=== PATIENT | male | born 1950 | race Caucasian/White ===

== ENCOUNTER 2018-07-14 19:45 | Inpatient (IN) | payer MEDICARE ==
[2018-07-14] MEDS ORDERED: CA CHLORIDE 10% 10 ML SYRINGE (19:56)
[2018-07-14] MEDS: SODIUM CHLORIDE 0.9% 1L BAG IV* (20:04)
[2018-07-14] MEDS: SODIUM CHLORIDE 0.9% 500 ML BAG IV* (20:04)
[2018-07-14] MEDS ORDERED: EPINEPHrine 0.1 MG/ML SYG ×2 (20:08→20:09)
[2018-07-14] MEDS: DOPamine-D5W 1.6 MG/ML 250 ML IV (20:12)
[2018-07-14] MEDS: NORepinephrine 8MG/250 ML (PMX 250 ML IV (20:16)
[2018-07-14] MEDS: VECURONIUM 100 MG in DEXTROSE 5% 100 ML IV (20:18)
[2018-07-14 20:34] LABS: WHITE BLOOD COUNT 6.9 10^3/ul (4.8-10.8)
[2018-07-14 20:34] LABS: ABNORMAL IP MESSAGE 1; HEMOGLOBIN 13.6 g/dl (14.0-18.0); MEAN CORPUSCULAR HGB CONC 31.6 g/dl (32.0-37.0); MEAN CORPUSCULAR VOLUME 94.9 fl (82.0-101.0); PLATELET COUNT 195 10^3/UL (140-415); POSITIVE DIFF @See below; RED BLOOD COUNT 4.53 10^6/ul (4.70-6.10); RED CELL DISTRIBUTION WIDTH 12.8 % (11.5-14.5)
[2018-07-14 20:37] LABS: ADD MAN DIFF? YES
[2018-07-14 20:39] LABS: INR 1.29; PARTIAL THROMBOPLASTIN TIME 35.9 Sec (23.0-35.0); PROTIME 16.2 Sec (11.9-14.9); PT RATIO 1.3
[2018-07-14 20:42] LABS: ADD UMIC NO; ALANINE AMINOTRANSFERASE 239 IU/L (13-69); ALBUMIN 3.6 g/dl (3.3-4.9); ALBUMIN/GLOBULIN RATIO 1.38; ALKALINE PHOSPHATASE 87 IU/L (42-121); ANION GAP 23 (5-13); ASPARTATE AMINO TRANSFERASE 193 IU/L (15-46); BILIRUBIN,INDIRECT 0.3 mg/dl (0-1.1); BILIRUBIN,TOTAL 0.3 mg/dl (0.2-1.3); BLOOD UREA NITROGEN 24 mg/dl (7-20); CALCIUM 10.4 mg/dl (8.4-10.2); CARBON DIOXIDE 18 mmol/L (21-31); CHLORIDE 98 mmol/L (97-110); CREATININE 1.22 mg/dl (0.61-1.24); Estimated GFR 59 mL/min (>60); LIPASE 70 U/L (23-300); MAGNESIUM 3.4 mg/dl (1.7-2.5); PHOSPHORUS 10.5 mg/dl (2.5-4.9); POTASSIUM 3.1 mmol/L (3.5-5.1); SODIUM 139 mmol/L (135-144); TOTAL PROTEIN 6.2 g/dl (6.1-8.1); UR ASCORBIC ACID 40 mg/dL (NEGATIVE); UR BILIRUBIN (Dip) NEGATIVE (NEGATIVE); UR BLOOD (Dip) NEGATIVE (NEGATIVE); UR CLARITY CLEAR (CLEAR); UR COLOR YELLOW (YELLOW); UR GLUCOSE (Dip) NEGATIVE (NEGATIVE); UR KETONES (Dip) NEGATIVE (NEGATIVE); UR LEUKOCYTE ESTERASE (Dip) NEGATIVE Leu/ul (NEGATIVE); UR NITRITE (Dip) NEGATIVE (NEGATIVE); UR SPECIFIC GRAVITY (Dip) 1.018 (1.003-1.030); UR TOTAL PROTEIN (Dip) NEGATIVE (NEGATIVE); UR UROBILINOGEN (Dip) NEGATIVE (NEGATIVE)
[2018-07-14] MEDS: HYDROCORTISONE 100 MG INJ IV (20:43)
[2018-07-14] MEDS: CEFEPIME 2GM/50 ML (PMX) 50 ML IVPB (20:44)
[2018-07-14 20:45] LABS: ETHANOL < 10.0 mg/dl (0-0)
[2018-07-14 20:47] LABS: GLUCOSE 468 mg/dl (70-220)
[2018-07-14 20:49] LABS: LACTIC ACID 17.4 mmol/L (0.5-2.0)
[2018-07-14 20:52] LABS: TROPONIN-I 0.061 ng/ml (0.000-0.120)
[2018-07-14] MEDS: VANCOMYCIN 1 GM (PMX) 250 ML IVPB (21:00)
[2018-07-14 21:02] LABS: AMPHETAMINE/METHAMPHETAMINE Negative (NEGATIVE); BARBITURATES Negative (NEGATIVE); BENZODIAZEPINES Negative (NEGATIVE); CANNABINOIDS Negative (NEGATIVE); COCAINE Negative (NEGATIVE); OPIATES Negative (NEGATIVE)
[2018-07-14 21:11] LABS: AADO2 Arterial 565.3 mmHg (7.0-24.0); Allen Test ACCEPTAB; Arterial Base Excess -12.7 mmol/L (-3.0-3); Arterial Blood Gas Oxygen Sat 89.6 mmHG (95.0-98.0); Arterial COHb 0.3 % (0.0-3.0); Arterial HCO3 18.6 mmol/L (22.0-26.0); Arterial MetHb 0.4 % (0.0-1.5); Arterial pCO2 66.6 mmhg (35-45); MODE VENT - AC; Site Right Radial
[2018-07-14] MEDS: VASOPRESSIN 100 UNIT in SOD CHLORIDE 0.9% 95 ML IV (21:13)
[2018-07-14] MEDS ORDERED: IOHEXOL 350MG/ML 50 ML BTL (21:17)
[2018-07-14] MEDS ORDERED: FENTAnyl 50 MCG/ML VIAL (21:17)
[2018-07-14] MEDS ORDERED: VERAPAMIL 5 MG INJ (21:17)
[2018-07-14] MEDS ORDERED: NITROGLYCERIN (IC) 100 MCG/ML INJ (21:17)
[2018-07-14] MEDS ORDERED: MIDAZOLAM 1 MG/ML 2 ML INJ (21:17)
[2018-07-14] MEDS ORDERED: IODIXANOL LOCM 100 ML BTL (21:17)
[2018-07-14] MEDS ORDERED: LIDOCAINE 1% (MDV) 20 ML INJ (21:17)
[2018-07-14] MEDS ORDERED: ASPIRIN 325 MG TAB ×2 (21:25→22:43)
[2018-07-14] MEDS ORDERED: NA BICARBONATE 8.4% 50 ML SYG (21:45)
[2018-07-14] MEDS ORDERED: TICAGRELOR 90 MG TABLET (22:19)
[2018-07-14 22:38] LABS: BAND NEUTROPHILS #M 0.3 10^3/ul (0.0-0.6); BAND NEUTROPHILS % (M) 5 % (0-4); BASOPHILS % (M) 1 % (0-2); EOSINOPHILS % (M) 3 % (0-7); LYMPHOCYTES #M 5.3 10^3/ul (0.8-2.9); LYMPHOCYTES % (M) 77 % (15-51); METAMYELOCYTES %M 1 % (0-0); MONOCYTE #M 0.4 10^3/ul (0.3-0.9); MONOCYTES % (M) 7 % (0-11); MYELOCYTES % (M) 1 % (0-0); PLASMA CELLS #M 0.1 10^3/ul (0.0-0.0); PLASMAC%(M) 2 % (0); PLATELET ESTIMATE NORMAL; POIKILOCYTOSIS 1+ (0-0); SEG NEUT #M 0.2 10^3/ul (1.6-7.5); SEGMENTED NEUTROPHILS (M) % 3 % (39-77); SMUDGE%M 64 % (0-0)
[2018-07-14 22:40] LABS: AADO2 Arterial 568.4 mmHg (7.0-24.0); Arterial Base Excess -6.1 mmol/L (-3.0-3); Arterial Blood Gas Oxygen Sat 93.5 mmHG (95.0-98.0); Arterial COHb 0.3 % (0.0-3.0); Arterial Fraction of Oxyhgb 92.8 % (93.0-99.0); Arterial HCO3 23.2 mmol/L (22.0-26.0); Arterial MetHb 0.4 % (0.0-1.5); Arterial pCO2 60.9 mmhg (35-45); MODE VENT - AC; Site A-Line
[2018-07-14] MEDS ORDERED: EPTIFIBATIDE 100 ML IV (22:44)
[2018-07-14] MEDS ORDERED: EPTIFIBATIDE 10 ML (22:44)
[2018-07-14] MEDS: SOD CHLORIDE 0.9% 1,000 ML IV (22:51)
[2018-07-14] MEDS: EPTIFIBATIDE 100 ML IV (22:51)
[2018-07-14 23:22] LABS: ADD MAN DIFF? NO
[2018-07-14 23:44] LABS: WHITE BLOOD COUNT 20.9 10^3/ul (4.8-10.8)
[2018-07-14 23:44] LABS: BASOPHIL # 0.1 10^3/ul (0.0-0.1); BASOPHILS % 0.3 % (0.0-2.0); EOSINOPHILS # 0.1 10^3/ul (0.0-0.5); EOSINOPHILS % 0.4 % (0.0-7.0); HEMATOCRIT 45.7 % (42.0-52.0); HEMOGLOBIN 15.6 g/dl (14.0-18.0); LYMPHOCYTES # 2.4 10^3/ul (0.8-2.9); LYMPHOCYTES % 11.3 % (15.0-51.0); MEAN CORPUSCULAR HEMOGLOBIN 29.8 pg (29.0-33.0); MEAN CORPUSCULAR HGB CONC 34.1 g/dl (32.0-37.0); MEAN CORPUSCULAR VOLUME 87.4 fl (82.0-101.0); MEAN PLATELET VOLUME 9.5 fl (7.4-10.4); MONOCYTE # 1.1 10^3/ul (0.3-0.9); MONOCYTES % 5.4 % (0.0-11.0); PLATELET COUNT 319 10^3/UL (140-415); RED BLOOD COUNT 5.23 10^6/ul (4.70-6.10); RED CELL DISTRIBUTION WIDTH 12.7 % (11.5-14.5)
[2018-07-14 23:52] LABS: ANION GAP 20 (5-13); BLOOD UREA NITROGEN 30 mg/dl (7-20); CALCIUM 8.9 mg/dl (8.4-10.2); CARBON DIOXIDE 23 mmol/L (21-31); CHLORIDE 99 mmol/L (97-110); CREATININE 1.36 mg/dl (0.61-1.24); Estimated GFR 52 mL/min (>60); GLUCOSE 380 mg/dl (70-220); MAGNESIUM 2.5 mg/dl (1.7-2.5); POTASSIUM 3.2 mmol/L (3.5-5.1); SODIUM 142 mmol/L (135-144)
[2018-07-15] LABS: LACTIC ACID 7.8 mmol/L (0.5-2.0)
[2018-07-15] MEDS ORDERED: AMIODARONE 900 MG in DEXTROSE 5% 482 ML IV (00:08)
[2018-07-15] MEDS ORDERED: IODIXANOL LOCM 100 ML BTL ×2 (00:13)
[2018-07-15] MEDS ORDERED: ONDANSETRON 4 MG INJ IV (00:30)
[2018-07-15] MEDS ORDERED: ALBUTEROL HFA 8 GM INHALER INH (00:30)
[2018-07-15] MEDS ORDERED: ACETAMINOPHEN 650MG/20.3ML CUP PO (00:30)
[2018-07-15] MEDS ORDERED: IPRATROPIUM (HFA) 12.9 GM INHALER INH (00:30)
[2018-07-15] MEDS ORDERED: ACCU-CHEK XX ×2 (00:30→02:30)
[2018-07-15] MEDS ORDERED: INSULIN HUMAN REGULAR 100 UNIT in SOD CHLORIDE 0.9% 99 ML IV ×2 (00:30→02:30)
[2018-07-15] MEDS ORDERED: DEXTROSE 50% 50 ML SYRINGE IV ×6 (00:30→02:30)
[2018-07-15] MEDS: MIDAZOLAM (DRIP) 50 mg/50 mL 50 ML IV ×4 (00:45→21:59)
[2018-07-15] MEDS: AMIODARONE 900 MG in DEXTROSE 5% 482 ML IV (00:46)
[2018-07-15] MEDS: FENTAnyl (DRIP) 1000 mcg/100mL 100 ML IV ×3 (00:46→21:44)
[2018-07-15] MEDS: POTASSIUM CHLORIDE 50 ML IVPB ×9 (01:03→20:36)
[2018-07-15] MEDS: LORAZEPAM 2 MG INJ IV (01:16)
[2018-07-15] MEDS: ACCU-CHEK XX ×24 (01:16→23:06)
[2018-07-15 01:47] LABS: LACTIC ACID 11.4 mmol/L (0.5-2.0)
[2018-07-15 01:51] LABS: HEMOGLOBIN A1C 5.3 % (0-5.9)
[2018-07-15] MEDS: PROPOFOL 100 ML IV ×6 (02:00→20:56)
[2018-07-15] MEDS: DIAZEPAM 5 MG/ML SYG IV (02:00)
[2018-07-15] MEDS: OCULAR LUBRICANT 3.5 GM OPH OINT BOTH EYES ×4 (02:00→18:07)
[2018-07-15] MEDS ORDERED: MEPERIDINE 25 MG INJ IM (02:00)
[2018-07-15] MEDS: ACETAMINOPHEN 650MG/20.3ML CUP NGT ×4 (02:00→21:52)
[2018-07-15] MEDS: ASPIRIN 300 MG SUPP PR (02:53)
[2018-07-15] MEDS ORDERED: MAGNESIUM SULFATE (02:54)
[2018-07-15] MEDS ORDERED: D5W (02:54)
[2018-07-15] MEDS: TICAGRELOR 90 MG TABLET PO ×3 (02:55→21:19)
[2018-07-15] MEDS: LEVETIRACETAM 1000 MG (PMX) 100 ML IVPB (03:08)
[2018-07-15] MEDS: MAGNESIUM SULFATE 3 GM in DEXTROSE 5% 100 ML IV (03:28)
[2018-07-15] MEDS ORDERED: MEPERIDINE 25 MG INJ IV (03:30)
[2018-07-15] MEDS: VASOPRESSIN 60 UNIT in DEXTROSE 5% 57 ML IV ×3 (04:00→16:06)
[2018-07-15] MEDS: INSULIN HUMAN REGULAR 100 UNIT in SOD CHLORIDE 0.9% 99 ML IV ×3 (04:13→20:14)
[2018-07-15] MEDS: NORepinephrine 32 MG in DEXTROSE 5% 218 ML IV (04:46)
[2018-07-15 05:17] LABS: AADO2 Arterial 278.9 mmHg (7.0-24.0); Arterial Base Excess -11.4 mmol/L (-3.0-3); Arterial Blood Gas Oxygen Sat 99.4 mmHG (95.0-98.0); Arterial COHb 0.3 % (0.0-3.0); Arterial Fraction of Oxyhgb 98.7 % (93.0-99.0); Arterial HCO3 13.6 mmol/L (22.0-26.0); Arterial MetHb 0.4 % (0.0-1.5); Arterial pCO2 24.3 mmhg (35-45); MODE VENT - AC; Site A-Line
[2018-07-15 05:48] LABS: WHITE BLOOD COUNT 28.9 10^3/ul (4.8-10.8)
[2018-07-15 05:48] LABS: ABNORMAL IP MESSAGE 1; HEMATOCRIT 42.8 % (42.0-52.0); MEAN CORPUSCULAR HEMOGLOBIN 30.4 pg (29.0-33.0); MEAN CORPUSCULAR VOLUME 86.8 fl (82.0-101.0); MEAN PLATELET VOLUME 9.6 fl (7.4-10.4); PLATELET COUNT 330 10^3/UL (140-415); POSITIVE DIFF @See below; RED BLOOD COUNT 4.93 10^6/ul (4.70-6.10); RED CELL DISTRIBUTION WIDTH 12.9 % (11.5-14.5)
[2018-07-15] MEDS: SOD CHLORIDE 0.9% 1,000 ML IV (05:50)
[2018-07-15 06:07] LABS: INR 1.17; PARTIAL THROMBOPLASTIN TIME 29.8 Sec (23.0-35.0); PT RATIO 1.2
[2018-07-15 06:12] LABS: ADD MAN DIFF? YES
[2018-07-15] MEDS: ARTIFICIAL TEARS 15 ML OPH BOTH EYES (06:19)
[2018-07-15] MEDS: PANTOPRAZOLE 40 MG INJ IV (06:20)
[2018-07-15 06:27] LABS: B-TYPE NATRIURETIC PEPTIDE 199 PG/ML (0-125)
[2018-07-15 06:38] LABS: ALANINE AMINOTRANSFERASE 353 IU/L (13-69); ALBUMIN 3.8 g/dl (3.3-4.9); ALBUMIN/GLOBULIN RATIO 1.35; ALKALINE PHOSPHATASE 92 IU/L (42-121); ANION GAP 23 (5-13); ASPARTATE AMINO TRANSFERASE 552 IU/L (15-46); BILIRUBIN,INDIRECT 0.6 mg/dl (0-1.1); BILIRUBIN,TOTAL 0.6 mg/dl (0.2-1.3); BLOOD UREA NITROGEN 31 mg/dl (7-20); CALCIUM 8.8 mg/dl (8.4-10.2); CARBON DIOXIDE 14 mmol/L (21-31); CHLORIDE 106 mmol/L (97-110); CREATININE 1.87 mg/dl (0.61-1.24); Estimated GFR 36 mL/min (>60); GLUCOSE 321 mg/dl (70-220); PHOSPHORUS 1.3 mg/dl (2.5-4.9); SODIUM 143 mmol/L (135-144); TOTAL PROTEIN 6.6 g/dl (6.1-8.1)
[2018-07-15 06:41] LABS: LACTIC ACID 13.4 mmol/L (0.5-2.0)
[2018-07-15 06:41] LABS: POTASSIUM 2.4 mmol/L (3.5-5.1)
[2018-07-15] MEDS ORDERED: POTASSIUM CHLORIDE 150 ML (06:44)
[2018-07-15 07:16] LABS: CHOL/HDL RATIO 4.4 RATIO; HDL CHOLESTEROL 39 mg/dl (30-78); LDL CHOLESTEROL,CALCULATED 76 mg/dl; TRIGLYCERIDES 291 mg/dl (0-149)
[2018-07-15 07:16] LABS: CHOLESTEROL 173 mg/dl (100-200)
[2018-07-15 07:19] LABS: MAGNESIUM 2.4 mg/dl (1.7-2.5)
[2018-07-15] MEDS ORDERED: NA BICARBONATE 8.4% 50 ML SYG (07:26)
[2018-07-15 07:35] LABS: ANISOCYTOSIS 2+ (0-0); BAND NEUTROPHILS % (M) 14 % (0-4); BURR CELLS 2+ (0-0); EOSINOPHILS % (M) 1 % (0-7); LYMPHOCYTES #M 2.3 10^3/ul (0.8-2.9); LYMPHOCYTES % (M) 8 % (15-51); MICROCYTOSIS 1+ (0-0); MONOCYTE #M 1.7 10^3/ul (0.3-0.9); MONOCYTES % (M) 6 % (0-11); MYELOCYTES #M 0.2 10^3/ul (0.0-0.0); MYELOCYTES % (M) 1 % (0-0); PLATELET ESTIMATE NORMAL; POIKILOCYTOSIS 3+ (0-0); REACTIVE LYMPHOCYTES #M 0.8 10^3/ul (0.0-0.0); REACTIVE LYMPHOCYTES% (M) 3 % (0-0); SEG NEUT #M 20.5 10^3/ul (1.6-7.5); SEGMENTED NEUTROPHILS (M) % 67 % (39-77); SMUDGE%M 2 % (0-0)
[2018-07-15] MEDS: NA BICARBONATE 8.4% 50 ML SYG IV (07:40)
[2018-07-15 08:19] LABS: CK INDEX 9.5
[2018-07-15] MEDS: ASPIRIN 81 MG TAB PO (10:15)
[2018-07-15] MEDS: DOPamine-D5W 1.6 MG/ML 250 ML IV ×2 (10:16→21:01)
[2018-07-15 10:37] LABS: AMYLASE 1036 U/L (11-123)
[2018-07-15 10:37] LABS: LIPASE 112 U/L (23-300)
[2018-07-15 11:47] LABS: AADO2 Arterial 237.7 mmHg (7.0-24.0); Arterial Blood Gas Oxygen Sat 97.7 mmHG (95.0-98.0); Arterial COHb 0.3 % (0.0-3.0); Arterial HCO3 17.3 mmol/L (22.0-26.0); Arterial MetHb 0.4 % (0.0-1.5); Arterial pCO2 29.7 mmhg (35-45); MODE VENT - AC; Site A-Line
[2018-07-15 12:04] LABS: ADD MAN DIFF? NO
[2018-07-15 12:16] LABS: MAGNESIUM 2.6 mg/dl (1.7-2.5)
[2018-07-15] MEDS: SODIUM BICARBONATE (IV ADD) 100 MEQ in DEXTROSE 5%-0.45% NACL 1,000 ML IV (12:16)
[2018-07-15 12:18] LABS: ALANINE AMINOTRANSFERASE 330 IU/L (13-69); ALBUMIN 3.8 g/dl (3.3-4.9); ALBUMIN/GLOBULIN RATIO 1.26; ALKALINE PHOSPHATASE 76 IU/L (42-121); ANION GAP 20 (5-13); ASPARTATE AMINO TRANSFERASE 510 IU/L (15-46); BILIRUBIN,INDIRECT 0.6 mg/dl (0-1.1); BILIRUBIN,TOTAL 0.6 mg/dl (0.2-1.3); BLOOD UREA NITROGEN 34 mg/dl (7-20); CALCIUM 9.1 mg/dl (8.4-10.2); CARBON DIOXIDE 19 mmol/L (21-31); CHLORIDE 103 mmol/L (97-110); CREATININE 2.21 mg/dl (0.61-1.24); Estimated GFR 30 mL/min (>60); GLUCOSE 245 mg/dl (70-220); PHOSPHORUS 0.6 mg/dl (2.5-4.9); SODIUM 142 mmol/L (135-144); TOTAL PROTEIN 6.8 g/dl (6.1-8.1)
[2018-07-15 12:21] LABS: INR 1.14; PROTIME 14.7 Sec (11.9-14.9); PT RATIO 1.1
[2018-07-15 12:22] LABS: PARTIAL THROMBOPLASTIN TIME 28.6 Sec (23.0-35.0)
[2018-07-15 12:24] LABS: WHITE BLOOD COUNT 30.1 10^3/ul (4.8-10.8)
[2018-07-15 12:24] LABS: ABNORMAL IP MESSAGE 1; BASOPHIL # 0.1 10^3/ul (0.0-0.1); BASOPHILS % 0.4 % (0.0-2.0); HEMATOCRIT 43.1 % (42.0-52.0); HEMOGLOBIN 14.9 g/dl (14.0-18.0); LYMPHOCYTES # 1.7 10^3/ul (0.8-2.9); LYMPHOCYTES % 5.5 % (15.0-51.0); MEAN CORPUSCULAR HEMOGLOBIN 29.9 pg (29.0-33.0); MEAN CORPUSCULAR HGB CONC 34.6 g/dl (32.0-37.0); MEAN CORPUSCULAR VOLUME 86.5 fl (82.0-101.0); MEAN PLATELET VOLUME 9.5 fl (7.4-10.4); MONOCYTE # 2.1 10^3/ul (0.3-0.9); MONOCYTES % 6.9 % (0.0-11.0); NEUTROPHIL # 25.8 10^3/ul (1.6-7.5); NEUTROPHILS % 85.7 % (39.0-77.0); PLATELET COUNT 288 10^3/UL (140-415); POSITIVE DIFF @See below; RED BLOOD COUNT 4.98 10^6/ul (4.70-6.10); RED CELL DISTRIBUTION WIDTH 12.7 % (11.5-14.5)
[2018-07-15 12:29] LABS: AMMONIA < 9 umol/l (9-30)
[2018-07-15 12:33] LABS: POTASSIUM 2.4 mmol/L (3.5-5.1)
[2018-07-15 12:34] LABS: LACTIC ACID 10.7 mmol/L (0.5-2.0)
[2018-07-15] MEDS ORDERED: LORAZEPAM 2 MG INJ IV (14:00)
[2018-07-15] MEDS ORDERED: SODIUM BICARBONATE (IV ADD) 100 MEQ in SOD CHLORIDE 0.45% 1,000 ML IV (14:00)
[2018-07-15] MEDS: LEVETIRACETAM 500 MG (PMX) 100 ML IVPB ×2 (16:07→20:56)
[2018-07-15 18:19] LABS: AADO2 Arterial 167.8 mmHg (7.0-24.0); Arterial Base Excess -6.7 mmol/L (-3.0-3); Arterial Blood Gas Oxygen Sat 93.5 mmHG (95.0-98.0); Arterial COHb 0.3 % (0.0-3.0); Arterial MetHb 0.2 % (0.0-1.5); MODE VENT - AC; Site A-Line
[2018-07-15 18:25] LABS: ADD MAN DIFF? NO
[2018-07-15 18:27] LABS: WHITE BLOOD COUNT 30.6 10^3/ul (4.8-10.8)
[2018-07-15 18:27] LABS: ABNORMAL IP MESSAGE 1; BASOPHIL # 0.1 10^3/ul (0.0-0.1); BASOPHILS % 0.3 % (0.0-2.0); EOSINOPHILS % 0.1 % (0.0-7.0); HEMATOCRIT 40.8 % (42.0-52.0); HEMOGLOBIN 14.6 g/dl (14.0-18.0); LYMPHOCYTES # 2.6 10^3/ul (0.8-2.9); LYMPHOCYTES % 8.6 % (15.0-51.0); MEAN CORPUSCULAR HEMOGLOBIN 30.2 pg (29.0-33.0); MEAN CORPUSCULAR HGB CONC 35.8 g/dl (32.0-37.0); MEAN CORPUSCULAR VOLUME 84.5 fl (82.0-101.0); MEAN PLATELET VOLUME 9.3 fl (7.4-10.4); MONOCYTE # 2.2 10^3/ul (0.3-0.9); NEUTROPHIL # 25.3 10^3/ul (1.6-7.5); NEUTROPHILS % 82.6 % (39.0-77.0); PLATELET COUNT 253 10^3/UL (140-415); POSITIVE DIFF @See below; RED BLOOD COUNT 4.83 10^6/ul (4.70-6.10); RED CELL DISTRIBUTION WIDTH 12.6 % (11.5-14.5)
[2018-07-15] MEDS: SODIUM BICARBONATE (IV ADD) 100 MEQ in SOD CHLORIDE 0.45% 900 ML IV (18:34)
[2018-07-15 18:45] LABS: MAGNESIUM 2.4 mg/dl (1.7-2.5)
[2018-07-15 18:45] LABS: ALANINE AMINOTRANSFERASE 297 IU/L (13-69); ALBUMIN 3.4 g/dl (3.3-4.9); ALBUMIN/GLOBULIN RATIO 1.21; ALKALINE PHOSPHATASE 71 IU/L (42-121); ANION GAP 15 (5-13); ASPARTATE AMINO TRANSFERASE 446 IU/L (15-46); BILIRUBIN,INDIRECT 0.4 mg/dl (0-1.1); BILIRUBIN,TOTAL 0.4 mg/dl (0.2-1.3); BLOOD UREA NITROGEN 36 mg/dl (7-20); CALCIUM 8.8 mg/dl (8.4-10.2); CARBON DIOXIDE 20 mmol/L (21-31); CHLORIDE 106 mmol/L (97-110); CREATININE 2.37 mg/dl (0.61-1.24); Estimated GFR 27 mL/min (>60); GLUCOSE 206 mg/dl (70-220); PHOSPHORUS 1.5 mg/dl (2.5-4.9); SODIUM 141 mmol/L (135-144); TOTAL PROTEIN 6.2 g/dl (6.1-8.1)
[2018-07-15 18:50] LABS: INR 1.11; PARTIAL THROMBOPLASTIN TIME 30.2 Sec (23.0-35.0); PROTIME 14.4 Sec (11.9-14.9); PT RATIO 1.1
[2018-07-15 18:53] LABS: LACTIC ACID 6.4 mmol/L (0.5-2.0)
[2018-07-15] MEDS: ATORVASTATIN 40 MG TAB PO (21:05)
[2018-07-15 22:02] LABS: AMYLASE 1580 U/L (11-123)
[2018-07-15 22:02] LABS: LIPASE 2528 U/L (23-300)
[2018-07-16] MEDS ORDERED: MAGNESIUM SULFATE 3 GM in DEXTROSE 5% 100 ML IVPB
[2018-07-16 00:04] LABS: Arterial Base Excess -2.6 mmol/L (-3.0-3); Arterial Blood Gas Oxygen Sat 92.8 mmHG (95.0-98.0); Arterial COHb 0 % (0.0-3.0); Arterial Fraction of Oxyhgb 92.5 % (93.0-99.0); Arterial HCO3 22.7 mmol/L (22.0-26.0); Arterial MetHb 0.3 % (0.0-1.5); Arterial pCO2 41.3 mmhg (35-45); MODE VENT - AC; Site A-Line
[2018-07-16] MEDS: ACCU-CHEK XX ×23 (00:06→22:30)
[2018-07-16] MEDS: PHENYLephrine 40 MG in DEXTROSE 5% 246 ML IV (00:06)
[2018-07-16] MEDS: OCULAR LUBRICANT 3.5 GM OPH OINT BOTH EYES ×4 (00:08→18:42)
[2018-07-16 00:42] LABS: ADD MAN DIFF? NO
[2018-07-16 00:43] LABS: ABNORMAL IP MESSAGE 1; BASOPHILS % 0.1 % (0.0-2.0); EOSINOPHILS # 0.1 10^3/ul (0.0-0.5); EOSINOPHILS % 0.3 % (0.0-7.0); HEMATOCRIT 41.5 % (42.0-52.0); HEMOGLOBIN 14.8 g/dl (14.0-18.0); LYMPHOCYTES # 2.7 10^3/ul (0.8-2.9); LYMPHOCYTES % 8.7 % (15.0-51.0); MEAN CORPUSCULAR HEMOGLOBIN 30.1 pg (29.0-33.0); MEAN CORPUSCULAR HGB CONC 35.7 g/dl (32.0-37.0); MEAN CORPUSCULAR VOLUME 84.3 fl (82.0-101.0); MEAN PLATELET VOLUME 9.7 fl (7.4-10.4); MONOCYTE # 2.6 10^3/ul (0.3-0.9); MONOCYTES % 8.4 % (0.0-11.0); NEUTROPHIL # 24.4 10^3/ul (1.6-7.5); NEUTROPHILS % 80.6 % (39.0-77.0); PLATELET COUNT 232 10^3/UL (140-415); POSITIVE DIFF @See below; RED BLOOD COUNT 4.92 10^6/ul (4.70-6.10); RED CELL DISTRIBUTION WIDTH 12.8 % (11.5-14.5)
[2018-07-16 00:43] LABS: WHITE BLOOD COUNT 30.3 10^3/ul (4.8-10.8)
[2018-07-16 01:00] LABS: INR 1.01; PROTIME 13.4 Sec (11.9-14.9)
[2018-07-16 01:01] LABS: PARTIAL THROMBOPLASTIN TIME 31.7 Sec (23.0-35.0)
[2018-07-16 01:03] LABS: ALANINE AMINOTRANSFERASE 279 IU/L (13-69); ALBUMIN 3.4 g/dl (3.3-4.9); ALBUMIN/GLOBULIN RATIO 1.17; ALKALINE PHOSPHATASE 74 IU/L (42-121); ANION GAP 16 (5-13); ASPARTATE AMINO TRANSFERASE 420 IU/L (15-46); BILIRUBIN,INDIRECT 0.5 mg/dl (0-1.1); BILIRUBIN,TOTAL 0.5 mg/dl (0.2-1.3); BLOOD UREA NITROGEN 38 mg/dl (7-20); CARBON DIOXIDE 23 mmol/L (21-31); CHLORIDE 103 mmol/L (97-110); CREATININE 2.56 mg/dl (0.61-1.24); Estimated GFR 25 mL/min (>60); GLUCOSE 111 mg/dl (70-220); PHOSPHORUS 2.9 mg/dl (2.5-4.9); POTASSIUM 3.2 mmol/L (3.5-5.1); SODIUM 142 mmol/L (135-144); TOTAL PROTEIN 6.3 g/dl (6.1-8.1)
[2018-07-16 01:04] LABS: MAGNESIUM 2.3 mg/dl (1.7-2.5)
[2018-07-16 01:12] LABS: LACTIC ACID 4.9 mmol/L (0.5-2.0)
[2018-07-16] MEDS: NORepinephrine 32 MG in DEXTROSE 5% 218 ML IV (02:24)
[2018-07-16] MEDS: VASOPRESSIN 60 UNIT in DEXTROSE 5% 57 ML IV ×2 (02:30→14:30)
[2018-07-16] MEDS: MIDAZOLAM (DRIP) 50 mg/50 mL 50 ML IV ×4 (03:11→20:48)
[2018-07-16] MEDS: SODIUM BICARBONATE (IV ADD) 100 MEQ in SOD CHLORIDE 0.45% 900 ML IV ×3 (04:00→16:16)
[2018-07-16 05:03] LABS: AADO2 Arterial 235.8 mmHg (7.0-24.0); Arterial Base Excess -2.9 mmol/L (-3.0-3); Arterial COHb 0.3 % (0.0-3.0); Arterial Fraction of Oxyhgb 94.5 % (93.0-99.0); Arterial HCO3 21.8 mmol/L (22.0-26.0); Arterial MetHb 0.2 % (0.0-1.5); Arterial pCO2 38.1 mmhg (35-45); MODE VENT - AC; Site A-Line
[2018-07-16 05:27] LABS: ADD MAN DIFF? NO
[2018-07-16] MEDS: PANTOPRAZOLE 40 MG INJ IV (05:34)
[2018-07-16] MEDS: SOD CHLORIDE 0.9% 1,000 ML IV (05:34)
[2018-07-16 05:36] LABS: WHITE BLOOD COUNT 26.3 10^3/ul (4.8-10.8)
[2018-07-16 05:36] LABS: ABNORMAL IP MESSAGE 1; BASOPHIL # 0.1 10^3/ul (0.0-0.1); BASOPHILS % 0.4 % (0.0-2.0); EOSINOPHILS # 0.1 10^3/ul (0.0-0.5); EOSINOPHILS % 0.5 % (0.0-7.0); HEMATOCRIT 40.6 % (42.0-52.0); HEMOGLOBIN 14.7 g/dl (14.0-18.0); LYMPHOCYTES # 2.6 10^3/ul (0.8-2.9); LYMPHOCYTES % 9.7 % (15.0-51.0); MEAN CORPUSCULAR HEMOGLOBIN 30.3 pg (29.0-33.0); MEAN CORPUSCULAR HGB CONC 36.2 g/dl (32.0-37.0); MEAN CORPUSCULAR VOLUME 83.7 fl (82.0-101.0); MEAN PLATELET VOLUME 9.5 fl (7.4-10.4); MONOCYTE # 1.8 10^3/ul (0.3-0.9); MONOCYTES % 6.6 % (0.0-11.0); NEUTROPHIL # 21.5 10^3/ul (1.6-7.5); NEUTROPHILS % 81.8 % (39.0-77.0); PLATELET COUNT 208 10^3/UL (140-415); POSITIVE DIFF @See below; RED BLOOD COUNT 4.85 10^6/ul (4.70-6.10); RED CELL DISTRIBUTION WIDTH 12.7 % (11.5-14.5)
[2018-07-16] MEDS: ACETAMINOPHEN 650MG/20.3ML CUP NGT ×3 (05:55→21:08)
[2018-07-16 05:59] LABS: INR 1.08; PROTIME 14.1 Sec (11.9-14.9); PT RATIO 1.1
[2018-07-16 06:00] LABS: PARTIAL THROMBOPLASTIN TIME 31.5 Sec (23.0-35.0)
[2018-07-16 06:10] LABS: LACTIC ACID 3.6 mmol/L (0.5-2.0)
[2018-07-16 06:13] LABS: MAGNESIUM 2.3 mg/dl (1.7-2.5)
[2018-07-16 06:15] LABS: LIPASE 2915 U/L (23-300)
[2018-07-16 06:15] LABS: AMYLASE 1573 U/L (11-123)
[2018-07-16 06:18] LABS: ALANINE AMINOTRANSFERASE 255 IU/L (13-69); ALBUMIN 3.2 g/dl (3.3-4.9); ALBUMIN/GLOBULIN RATIO 1.18; ALKALINE PHOSPHATASE 74 IU/L (42-121); ANION GAP 16 (5-13); ASPARTATE AMINO TRANSFERASE 351 IU/L (15-46); BILIRUBIN,INDIRECT 0.5 mg/dl (0-1.1); BILIRUBIN,TOTAL 0.5 mg/dl (0.2-1.3); BLOOD UREA NITROGEN 39 mg/dl (7-20); CALCIUM 8.6 mg/dl (8.4-10.2); CARBON DIOXIDE 25 mmol/L (21-31); CHLORIDE 102 mmol/L (97-110); CREATININE 2.72 mg/dl (0.61-1.24); Estimated GFR 23 mL/min (>60); GLUCOSE 110 mg/dl (70-220); PHOSPHORUS 5.5 mg/dl (2.5-4.9); POTASSIUM 3.6 mmol/L (3.5-5.1); SODIUM 143 mmol/L (135-144); TOTAL PROTEIN 5.9 g/dl (6.1-8.1)
[2018-07-16] MEDS: FENTAnyl (DRIP) 1000 mcg/100mL 100 ML IV ×2 (06:46→18:02)
[2018-07-16] MEDS: LEVETIRACETAM 500 MG (PMX) 100 ML IVPB ×2 (08:43→20:52)
[2018-07-16] MEDS: ASPIRIN 81 MG TAB PO (08:43)
[2018-07-16] MEDS: TICAGRELOR 90 MG TABLET PO ×2 (08:45→20:46)
[2018-07-16] MEDS: PIPER-TAZO 2.25 GM (PMX) 50 ML IVPB ×3 (10:12→21:07)
[2018-07-16] MEDS: DOPamine-D5W 1.6 MG/ML 250 ML IV (11:35)
[2018-07-16] MEDS: ARTIFICIAL TEARS 15 ML OPH BOTH EYES ×2 (12:12→23:59)
[2018-07-16 12:30] LABS: ADD MAN DIFF? NO
[2018-07-16 12:40] LABS: WHITE BLOOD COUNT 20.6 10^3/ul (4.8-10.8)
[2018-07-16 12:40] LABS: BASOPHILS % 0.1 % (0.0-2.0); EOSINOPHILS # 0.1 10^3/ul (0.0-0.5); EOSINOPHILS % 0.2 % (0.0-7.0); HEMATOCRIT 38.6 % (42.0-52.0); HEMOGLOBIN 13.8 g/dl (14.0-18.0); LYMPHOCYTES # 1.3 10^3/ul (0.8-2.9); LYMPHOCYTES % 6.5 % (15.0-51.0); MEAN CORPUSCULAR HEMOGLOBIN 29.9 pg (29.0-33.0); MEAN CORPUSCULAR HGB CONC 35.8 g/dl (32.0-37.0); MEAN CORPUSCULAR VOLUME 83.5 fl (82.0-101.0); MEAN PLATELET VOLUME 9.8 fl (7.4-10.4); MONOCYTES % 4.8 % (0.0-11.0); NEUTROPHILS % 87.7 % (39.0-77.0); PLATELET COUNT 179 10^3/UL (140-415); RED BLOOD COUNT 4.62 10^6/ul (4.70-6.10); RED CELL DISTRIBUTION WIDTH 13.3 % (11.5-14.5)
[2018-07-16 12:52] LABS: ALANINE AMINOTRANSFERASE 220 IU/L (13-69); ALBUMIN 2.8 g/dl (3.3-4.9); ALBUMIN/GLOBULIN RATIO 1.07; ALKALINE PHOSPHATASE 68 IU/L (42-121); ANION GAP 11 (5-13); ASPARTATE AMINO TRANSFERASE 276 IU/L (15-46); BILIRUBIN,INDIRECT 0.6 mg/dl (0-1.1); BILIRUBIN,TOTAL 0.6 mg/dl (0.2-1.3); BLOOD UREA NITROGEN 39 mg/dl (7-20); CALCIUM 7.8 mg/dl (8.4-10.2); CARBON DIOXIDE 24 mmol/L (21-31); CHLORIDE 105 mmol/L (97-110); CREATININE 2.97 mg/dl (0.61-1.24); Estimated GFR 21 mL/min (>60); GLUCOSE 117 mg/dl (70-220); INR 1.15; PHOSPHORUS 6.9 mg/dl (2.5-4.9); POTASSIUM 4.3 mmol/L (3.5-5.1); PROTIME 14.8 Sec (11.9-14.9); PT RATIO 1.2; SODIUM 140 mmol/L (135-144); TOTAL PROTEIN 5.4 g/dl (6.1-8.1)
[2018-07-16 12:53] LABS: PARTIAL THROMBOPLASTIN TIME 31.5 Sec (23.0-35.0)
[2018-07-16 12:54] LABS: LACTIC ACID 3.1 mmol/L (0.5-2.0)
[2018-07-16 13:30] LABS: AADO2 Arterial 267.6 mmHg (7.0-24.0); Arterial Base Excess -1.9 mmol/L (-3.0-3); Arterial Blood Gas Oxygen Sat 90.6 mmHG (95.0-98.0); Arterial COHb 0.3 % (0.0-3.0); Arterial Fraction of Oxyhgb 90.1 % (93.0-99.0); Arterial HCO3 22.9 mmol/L (22.0-26.0); Arterial MetHb 0.2 % (0.0-1.5); Arterial pCO2 35.8 mmhg (35-45); MODE VENT - AC; Site A-Line; Temperature 34.8 C
[2018-07-16 18:37] LABS: ADD MAN DIFF? NO
[2018-07-16 18:40] LABS: BASOPHIL # 0.1 10^3/ul (0.0-0.1); BASOPHILS % 0.3 % (0.0-2.0); EOSINOPHILS % 0.2 % (0.0-7.0); HEMATOCRIT 37.5 % (42.0-52.0); HEMOGLOBIN 13.2 g/dl (14.0-18.0); LYMPHOCYTES # 1.1 10^3/ul (0.8-2.9); MEAN CORPUSCULAR HEMOGLOBIN 30.2 pg (29.0-33.0); MEAN CORPUSCULAR HGB CONC 35.2 g/dl (32.0-37.0); MEAN CORPUSCULAR VOLUME 85.8 fl (82.0-101.0); MEAN PLATELET VOLUME 9.8 fl (7.4-10.4); MONOCYTES % 5.5 % (0.0-11.0); NEUTROPHIL # 15.5 10^3/ul (1.6-7.5); NEUTROPHILS % 86.8 % (39.0-77.0); PLATELET COUNT 174 10^3/UL (140-415); RED BLOOD COUNT 4.37 10^6/ul (4.70-6.10); RED CELL DISTRIBUTION WIDTH 13.5 % (11.5-14.5)
[2018-07-16 18:40] LABS: WHITE BLOOD COUNT 17.8 10^3/ul (4.8-10.8)
[2018-07-16 18:59] LABS: INR 1.19; PROTIME 15.2 Sec (11.9-14.9); PT RATIO 1.2
[2018-07-16 19:05] LABS: MAGNESIUM 2.1 mg/dl (1.7-2.5)
[2018-07-16 19:06] LABS: PARTIAL THROMBOPLASTIN TIME 30.3 Sec (23.0-35.0)
[2018-07-16 19:07] LABS: ALANINE AMINOTRANSFERASE 209 IU/L (13-69); ALBUMIN 2.6 g/dl (3.3-4.9); ALBUMIN/GLOBULIN RATIO 1.13; ALKALINE PHOSPHATASE 70 IU/L (42-121); ANION GAP 12 (5-13); ASPARTATE AMINO TRANSFERASE 251 IU/L (15-46); BILIRUBIN,INDIRECT 0.5 mg/dl (0-1.1); BILIRUBIN,TOTAL 0.5 mg/dl (0.2-1.3); BLOOD UREA NITROGEN 41 mg/dl (7-20); CALCIUM 7.6 mg/dl (8.4-10.2); CARBON DIOXIDE 25 mmol/L (21-31); CHLORIDE 103 mmol/L (97-110); CREATININE 3.22 mg/dl (0.61-1.24); Estimated GFR 19 mL/min (>60); GLUCOSE 110 mg/dl (70-220); PHOSPHORUS 7.1 mg/dl (2.5-4.9); SODIUM 140 mmol/L (135-144); TOTAL PROTEIN 4.9 g/dl (6.1-8.1)
[2018-07-16 19:16] LABS: LACTIC ACID 3.1 mmol/L (0.5-2.0)
[2018-07-16] MEDS: ATORVASTATIN 40 MG TAB PO (20:45)
[2018-07-17] MEDS: ACCU-CHEK XX ×15 (00:01→14:27)
[2018-07-17] MEDS: OCULAR LUBRICANT 3.5 GM OPH OINT BOTH EYES ×4 (00:01→17:38)
[2018-07-17 02:06] LABS: AADO2 Arterial 606.4 mmHg (7.0-24.0); Allen Test ACCEPTAB; Arterial Base Excess 1.6 mmol/L (-3.0-3); Arterial Blood Gas Oxygen Sat 90.6 mmHG (95.0-98.0); Arterial COHb 0.3 % (0.0-3.0); Arterial Fraction of Oxyhgb 90.1 % (93.0-99.0); Arterial MetHb 0.3 % (0.0-1.5); Arterial pCO2 45.5 mmhg (35-45); MODE VENT - AC; Site Right Brachial
[2018-07-17] MEDS: SODIUM BICARBONATE (IV ADD) 100 MEQ in SOD CHLORIDE 0.45% 900 ML IV (02:15)
[2018-07-17] MEDS: VASOPRESSIN 60 UNIT in DEXTROSE 5% 57 ML IV ×2 (02:30→14:28)
[2018-07-17] MEDS: DOPamine-D5W 1.6 MG/ML 250 ML IV ×2 (02:35→20:57)
[2018-07-17 05:49] LABS: ADD MAN DIFF? NO
[2018-07-17] MEDS: PIPER-TAZO 2.25 GM (PMX) 50 ML IVPB ×3 (06:07→22:14)
[2018-07-17] MEDS: ACETAMINOPHEN 650MG/20.3ML CUP NGT ×2 (06:07→14:36)
[2018-07-17 06:08] LABS: MAGNESIUM 2.1 mg/dl (1.7-2.5)
[2018-07-17 06:09] LABS: ANION GAP 14 (5-13); BLOOD UREA NITROGEN 47 mg/dl (7-20); CARBON DIOXIDE 29 mmol/L (21-31); CHLORIDE 99 mmol/L (97-110); CREATININE 3.76 mg/dl (0.61-1.24); Estimated GFR 16 mL/min (>60); GLUCOSE 100 mg/dl (70-220); POTASSIUM 4.9 mmol/L (3.5-5.1); SODIUM 142 mmol/L (135-144)
[2018-07-17 06:18] LABS: ADD UMIC YES; UR ASCORBIC ACID NEGATIVE (NEGATIVE); UR BACTERIA FEW /HPF (NONE SEEN); UR BILIRUBIN (Dip) NEGATIVE (NEGATIVE); UR BLOOD (Dip) 3+ mg/dL (NEGATIVE); UR CLARITY CLOUDY (CLEAR); UR COLOR YELLOW (YELLOW); UR GLUCOSE (Dip) NEGATIVE (NEGATIVE); UR KETONES (Dip) NEGATIVE (NEGATIVE); UR LEUKOCYTE ESTERASE (Dip) 2+ Leu/ul (NEGATIVE); UR NITRITE (Dip) NEGATIVE (NEGATIVE); UR RBC 104 /HPF (0-5); UR SPECIFIC GRAVITY (Dip) 1.017 (1.003-1.030); UR TOTAL PROTEIN (Dip) 1+ mg/dl (NEGATIVE); UR UROBILINOGEN (Dip) NEGATIVE (NEGATIVE); UR WBC 31 /HPF (0-5)
[2018-07-17 06:19] LABS: CREATININE,URINE RANDOM 63.77 mg/dl (20-370)
[2018-07-17 06:27] LABS: WHITE BLOOD COUNT 19.2 10^3/ul (4.8-10.8)
[2018-07-17 06:27] LABS: BASOPHIL # 0.1 10^3/ul (0.0-0.1); BASOPHILS % 0.3 % (0.0-2.0); EOSINOPHILS % 0.2 % (0.0-7.0); HEMATOCRIT 34.9 % (42.0-52.0); HEMOGLOBIN 11.8 g/dl (14.0-18.0); LYMPHOCYTES # 1.4 10^3/ul (0.8-2.9); LYMPHOCYTES % 7.4 % (15.0-51.0); MEAN CORPUSCULAR HEMOGLOBIN 30.3 pg (29.0-33.0); MEAN CORPUSCULAR HGB CONC 33.8 g/dl (32.0-37.0); MEAN CORPUSCULAR VOLUME 89.7 fl (82.0-101.0); MEAN PLATELET VOLUME 10.5 fl (7.4-10.4); MONOCYTE # 1.4 10^3/ul (0.3-0.9); MONOCYTES % 7.1 % (0.0-11.0); NEUTROPHIL # 16.1 10^3/ul (1.6-7.5); NEUTROPHILS % 83.6 % (39.0-77.0); PLATELET COUNT 168 10^3/UL (140-415); POSITIVE DIFF @See below; RED BLOOD COUNT 3.89 10^6/ul (4.70-6.10); RED CELL DISTRIBUTION WIDTH 14.1 % (11.5-14.5)
[2018-07-17 06:34] LABS: SODIUM,URINE RANDOM < 13 mmol/L (30-90)
[2018-07-17 07:52] LABS: AADO2 Arterial 597.8 mmHg (7.0-24.0); Allen Test ACCEPTAB; Arterial Base Excess 1.3 mmol/L (-3.0-3); Arterial Blood Gas Oxygen Sat 93.9 mmHG (95.0-98.0); Arterial COHb 0.6 % (0.0-3.0); Arterial Fraction of Oxyhgb 93.1 % (93.0-99.0); Arterial HCO3 26.5 mmol/L (22.0-26.0); Arterial MetHb 0.3 % (0.0-1.5); MODE VENT - AC; Site Right Radial
[2018-07-17] MEDS: FAMOTIDINE 20 MG INJ IV (08:26)
[2018-07-17] MEDS: ASPIRIN 81 MG TAB PO (08:26)
[2018-07-17] MEDS: LEVETIRACETAM 500 MG (PMX) 100 ML IVPB ×2 (08:27→20:56)
[2018-07-17] MEDS: TICAGRELOR 90 MG TABLET PO ×2 (08:31→20:58)
[2018-07-17 09:33] LABS: ANISOCYTOSIS 2+ (0-0); BAND NEUTROPHILS #M 2.6 10^3/ul (0.0-0.6); BAND NEUTROPHILS % (M) 14 % (0-4); BASOPHIL #M 0.1 10^3/ul (0.0-0.0); BASOPHILS % (M) 1 % (0-2); BURR CELLS 1+ (0-0); GIANT THROMBO% (M) 1 % (0-0); LYMPHOCYTES #M 1.3 10^3/ul (0.8-2.9); LYMPHOCYTES % (M) 7 % (15-51); MICROCYTOSIS 2+ (0-0); MONOCYTE #M 0.3 10^3/ul (0.3-0.9); MONOCYTES % (M) 2 % (0-11); OVALOCYTES 1+ (0-0); PLATELET ESTIMATE NORMAL; REACTIVE LYMPHOCYTES #M 0.3 10^3/ul (0.0-0.0); REACTIVE LYMPHOCYTES% (M) 2 % (0-0); SEG NEUT #M 14.7 10^3/ul (1.6-7.5); SEGMENTED NEUTROPHILS (M) % 74 % (39-77); SMUDGE%M 5 % (0-0)
[2018-07-17] MEDS: SOD CHLORIDE 0.9% 1,000 ML IV ×2 (09:56→21:25)
[2018-07-17] MEDS: FUROSEMIDE 40 MG INJ IV (12:51)
[2018-07-17] MEDS: INSULIN ASPART [NOVOLOG] 3 ML PEN SC ×3 (13:00→17:00)
[2018-07-17] MEDS: CALCIUM GLUCONATE 10% 1 GM in DEXTROSE 5% 100 ML IVPB (14:35)
[2018-07-17] MEDS: NORepinephrine 32 MG in DEXTROSE 5% 218 ML IV (16:00)
[2018-07-17] MEDS: ATORVASTATIN 40 MG TAB PO (20:55)
[2018-07-17] MEDS: HEPARIN 5,000 UNIT/1 ML VIAL SC (20:57)
[2018-07-18] MEDS: OCULAR LUBRICANT 3.5 GM OPH OINT BOTH EYES ×5 (00:08→23:42)
[2018-07-18] MEDS: VASOPRESSIN 60 UNIT in DEXTROSE 5% 57 ML IV (02:30)
[2018-07-18] MEDS: PIPER-TAZO 2.25 GM (PMX) 50 ML IVPB ×3 (05:37→21:52)
[2018-07-18 05:59] LABS: LACTIC ACID 1.9 mmol/L (0.5-2.0)
[2018-07-18 06:29] LABS: WHITE BLOOD COUNT 16.5 10^3/ul (4.8-10.8)
[2018-07-18 06:29] LABS: HEMOGLOBIN 10.6 g/dl (14.0-18.0); MEAN CORPUSCULAR HEMOGLOBIN 30.2 pg (29.0-33.0); MEAN CORPUSCULAR HGB CONC 33.1 g/dl (32.0-37.0); MEAN CORPUSCULAR VOLUME 91.2 fl (82.0-101.0); MEAN PLATELET VOLUME 9.9 fl (7.4-10.4); PLATELET COUNT 125 10^3/UL (140-415); POSITIVE DIFF @See below; RED BLOOD COUNT 3.51 10^6/ul (4.70-6.10); RED CELL DISTRIBUTION WIDTH 14.2 % (11.5-14.5)
[2018-07-18 06:32] LABS: ADD MAN DIFF? YES
[2018-07-18 06:49] LABS: ALANINE AMINOTRANSFERASE 133 IU/L (13-69); ALBUMIN 2.8 g/dl (3.3-4.9); ALBUMIN/GLOBULIN RATIO 0.96; ALKALINE PHOSPHATASE 72 IU/L (42-121); ANION GAP 15 (5-13); ASPARTATE AMINO TRANSFERASE 149 IU/L (15-46); BILIRUBIN,INDIRECT 0.6 mg/dl (0-1.1); BILIRUBIN,TOTAL 0.6 mg/dl (0.2-1.3); BLOOD UREA NITROGEN 65 mg/dl (7-20); CARBON DIOXIDE 25 mmol/L (21-31); CHLORIDE 101 mmol/L (97-110); CREATININE 5.03 mg/dl (0.61-1.24); Estimated GFR 12 mL/min (>60); GLUCOSE 87 mg/dl (70-220); POTASSIUM 4.9 mmol/L (3.5-5.1); SODIUM 141 mmol/L (135-144); TOTAL PROTEIN 5.7 g/dl (6.1-8.1)
[2018-07-18 07:23] LABS: ANISOCYTOSIS 2+ (0-0); BAND NEUTROPHILS #M 3.9 10^3/ul (0.0-0.6); BAND NEUTROPHILS % (M) 24 % (0-4); BASOPHIL #M 0.1 10^3/ul (0.0-0.0); BASOPHILS % (M) 1 % (0-2); EOSINOPHILS % (M) 1 % (0-7); LYMPHOCYTES #M 1.4 10^3/ul (0.8-2.9); LYMPHOCYTES % (M) 9 % (15-51); MICROCYTOSIS 2+ (0-0); MONOCYTE #M 0.8 10^3/ul (0.3-0.9); MONOCYTES % (M) 5 % (0-11); PLATELET ESTIMATE DECREASED; POLYCHROMASIA 3+ (0-0); REACTIVE LYMPHOCYTES #M 0.3 10^3/ul (0.0-0.0); REACTIVE LYMPHOCYTES% (M) 2 % (0-0); SEG NEUT #M 10.2 10^3/ul (1.6-7.5); SEGMENTED NEUTROPHILS (M) % 58 % (39-77); SMUDGE%M 2 % (0-0)
[2018-07-18 07:29] LABS: CK INDEX 7.6; CREATINE KINASE 400 IU/L (23-200)
[2018-07-18 07:42] LABS: PHOSPHORUS 8.8 mg/dl (2.5-4.9)
[2018-07-18 07:42] LABS: MAGNESIUM 2.1 mg/dl (1.7-2.5)
[2018-07-18] MEDS: FUROSEMIDE 40 MG INJ IV ×2 (08:08→18:14)
[2018-07-18] MEDS: FAMOTIDINE 20 MG INJ IV (08:09)
[2018-07-18] MEDS: ASPIRIN 81 MG TAB PO (08:09)
[2018-07-18] MEDS: HEPARIN 5,000 UNIT/1 ML VIAL SC ×2 (08:10→21:37)
[2018-07-18] MEDS: TICAGRELOR 90 MG TABLET PO ×2 (08:10→21:37)
[2018-07-18] MEDS: LEVETIRACETAM 500 MG (PMX) 100 ML IVPB ×2 (09:06→21:33)
[2018-07-18 11:10] LABS: AADO2 Arterial 309.5 mmHg (7.0-24.0); Allen Test ACCEPTAB; Arterial Base Excess 0.1 mmol/L (-3.0-3); Arterial COHb 0.3 % (0.0-3.0); Arterial Fraction of Oxyhgb 90.4 % (93.0-99.0); Arterial HCO3 26.2 mmol/L (22.0-26.0); Arterial MetHb 0.4 % (0.0-1.5); Arterial pCO2 48.7 mmhg (35-45); MODE VENT - AC; Site Right Radial
[2018-07-18 13:09] LABS: Allen Test ACCEPTAB; Arterial Base Excess 0.4 mmol/L (-3.0-3); Arterial Blood Gas Oxygen Sat 92.9 mmHG (95.0-98.0); Arterial COHb 0.3 % (0.0-3.0); Arterial Fraction of Oxyhgb 92.3 % (93.0-99.0); Arterial HCO3 25.8 mmol/L (22.0-26.0); Arterial MetHb 0.3 % (0.0-1.5); Arterial pCO2 44.7 mmhg (35-45); MODE VENT - AC; Site Right Radial
[2018-07-18] MEDS: SOD CHLORIDE 0.9% 1,000 ML IV (14:18)
[2018-07-18 14:56] LABS: Allen Test ACCEPTAB; Arterial Blood Gas Oxygen Sat 93.3 mmHG (95.0-98.0); Arterial COHb 0.3 % (0.0-3.0); Arterial Fraction of Oxyhgb 92.6 % (93.0-99.0); Arterial HCO3 26.7 mmol/L (22.0-26.0); Arterial MetHb 0.4 % (0.0-1.5); Arterial pCO2 66.4 mmhg (35-45); MODE NASAL CANNULA; Site Right Radial
[2018-07-18 15:32] LABS: CREATININE, RANDOM URINE 57 mg/dL (20-320); MICROALBUMIN 18.5 mg/dL; MICROALBUMIN/CREATININE RATIO 325 (<30)
[2018-07-18] MEDS: ATORVASTATIN 40 MG TAB PO (21:32)
[2018-07-18] MEDS: ARTIFICIAL TEARS 15 ML OPH BOTH EYES (23:41)
[2018-07-19] MEDS: OCULAR LUBRICANT 3.5 GM OPH OINT BOTH EYES ×3 (05:36→18:02)
[2018-07-19] MEDS: ARTIFICIAL TEARS 15 ML OPH BOTH EYES (05:36)
[2018-07-19] MEDS: PIPER-TAZO 2.25 GM (PMX) 50 ML IVPB ×3 (05:43→20:11)
[2018-07-19] MEDS: FUROSEMIDE 40 MG INJ IV ×2 (06:01→18:05)
[2018-07-19 06:44] LABS: ADD MAN DIFF? NO
[2018-07-19 06:45] LABS: WHITE BLOOD COUNT 14.5 10^3/ul (4.8-10.8)
[2018-07-19 06:45] LABS: ABNORMAL IP MESSAGE 1; BASOPHILS % 0.3 % (0.0-2.0); EOSINOPHILS # 0.1 10^3/ul (0.0-0.5); EOSINOPHILS % 0.7 % (0.0-7.0); HEMATOCRIT 29.1 % (42.0-52.0); HEMOGLOBIN 9.6 g/dl (14.0-18.0); LYMPHOCYTES % 6.8 % (15.0-51.0); MEAN CORPUSCULAR HEMOGLOBIN 30.3 pg (29.0-33.0); MEAN CORPUSCULAR VOLUME 91.8 fl (82.0-101.0); MEAN PLATELET VOLUME 10.2 fl (7.4-10.4); NEUTROPHIL # 12.3 10^3/ul (1.6-7.5); NEUTROPHILS % 84.6 % (39.0-77.0); PLATELET COUNT 129 10^3/UL (140-415); POSITIVE DIFF @See below; RED BLOOD COUNT 3.17 10^6/ul (4.70-6.10); RED CELL DISTRIBUTION WIDTH 14.2 % (11.5-14.5)
[2018-07-19 07:15] LABS: LACTIC ACID 1.5 mmol/L (0.5-2.0)
[2018-07-19 07:50] LABS: ANION GAP 13 (5-13); BLOOD UREA NITROGEN 82 mg/dl (7-20); CALCIUM 7.3 mg/dl (8.4-10.2); CARBON DIOXIDE 26 mmol/L (21-31); CHLORIDE 104 mmol/L (97-110); CREATININE 5.88 mg/dl (0.61-1.24); Estimated GFR 10 mL/min (>60); GLUCOSE 84 mg/dl (70-220); MAGNESIUM 2.4 mg/dl (1.7-2.5); POTASSIUM 4.1 mmol/L (3.5-5.1); SODIUM 143 mmol/L (135-144)
[2018-07-19 08:39] LABS: AADO2 Arterial 303.1 mmHg (7.0-24.0); Allen Test ACCEPTAB; Arterial Base Excess -0.8 mmol/L (-3.0-3); Arterial Blood Gas Oxygen Sat 94.6 mmHG (95.0-98.0); Arterial COHb 0.3 % (0.0-3.0); Arterial Fraction of Oxyhgb 94.1 % (93.0-99.0); Arterial HCO3 24.4 mmol/L (22.0-26.0); Arterial MetHb 0.2 % (0.0-1.5); Arterial pCO2 42.5 mmhg (35-45); MODE VENT - AC; Site Right Radial
[2018-07-19] MEDS: LEVETIRACETAM 500 MG (PMX) 100 ML IVPB ×2 (08:50→20:11)
[2018-07-19] MEDS: DEXTROSE 10% 1,000 ML IV (08:50)
[2018-07-19] MEDS: TICAGRELOR 90 MG TABLET PO ×2 (08:51→20:13)
[2018-07-19] MEDS: HEPARIN 5,000 UNIT/1 ML VIAL SC ×2 (08:53→20:13)
[2018-07-19] MEDS: ASPIRIN 81 MG TAB PO (08:58)
[2018-07-19 09:41] LABS: ANISOCYTOSIS 2+ (0-0); BAND NEUTROPHILS #M 1.8 10^3/ul (0.0-0.6); BAND NEUTROPHILS % (M) 13 % (0-4); LYMPHOCYTES % (M) 7 % (15-51); MICROCYTOSIS 2+ (0-0); MONOCYTE #M 0.8 10^3/ul (0.3-0.9); MONOCYTES % (M) 6 % (0-11); PLATELET ESTIMATE DECREASED; POLYCHROMASIA 3+ (0-0); REACTIVE LYMPHOCYTES #M 0.2 10^3/ul (0.0-0.0); REACTIVE LYMPHOCYTES% (M) 2 % (0-0); SEG NEUT #M 10.7 10^3/ul (1.6-7.5); SEGMENTED NEUTROPHILS (M) % 72 % (39-77); SMUDGE%M 3 % (0-0)
[2018-07-19] MEDS: FAMOTIDINE 20 MG INJ IV (09:41)
[2018-07-19] MEDS ORDERED: INFLUENZA VIRUS VACCINE 0.5 ML (DISPENSING) IM* (10:00)
[2018-07-19 18:24] LABS: LACTATE DEHYDROGENASE 2090 IU/L (313-618)
[2018-07-19 18:24] LABS: IRON 23 ug/dl (35-150)
[2018-07-19 18:25] LABS: ALANINE AMINOTRANSFERASE 100 IU/L (13-69); ALBUMIN 2.7 g/dl (3.3-4.9); ALKALINE PHOSPHATASE 110 IU/L (42-121); ASPARTATE AMINO TRANSFERASE 90 IU/L (15-46); BILIRUBIN,INDIRECT 0.3 mg/dl (0-1.1); BILIRUBIN,TOTAL 0.3 mg/dl (0.2-1.3); TOTAL PROTEIN 5.4 g/dl (6.1-8.1)
[2018-07-19 18:33] LABS: % IRON SATURATION 14 % SAT (22-52); TOTAL IRON BINDING CAPACITY 165 ug/dl (241-421)
[2018-07-19] MEDS: ATORVASTATIN 40 MG TAB PO (20:11)
[2018-07-19 22:37] LABS: RETICULOCYTE RBC 3.03
[2018-07-19 22:37] LABS: HEMATOCRIT 27.6 % (42.0-52.0); HEMOGLOBIN 9.2 g/dl (14.0-18.0); RETICULOCYTE COUNT # 0.053 X10^6 (0.020-0.110); RETICULOCYTE COUNT % 1.8 % (0.5-1.5)
[2018-07-20] MEDS: OCULAR LUBRICANT 3.5 GM OPH OINT BOTH EYES ×4 (00:10→17:58)
[2018-07-20] MEDS: DEXTROSE 10% 1,000 ML IV (03:30)
[2018-07-20] MEDS: ALTEPLASE (CATHFLO) 2 MG INJ CATHETER (03:38)
[2018-07-20 05:00] LABS: ADD MAN DIFF? NO
[2018-07-20 05:09] LABS: BASOPHIL # 0.1 10^3/ul (0.0-0.1); BASOPHILS % 0.5 % (0.0-2.0); EOSINOPHILS # 0.2 10^3/ul (0.0-0.5); EOSINOPHILS % 1.4 % (0.0-7.0); HEMATOCRIT 29.3 % (42.0-52.0); HEMOGLOBIN 9.6 g/dl (14.0-18.0); LYMPHOCYTES # 0.9 10^3/ul (0.8-2.9); LYMPHOCYTES % 6.6 % (15.0-51.0); MEAN CORPUSCULAR HEMOGLOBIN 30.3 pg (29.0-33.0); MEAN CORPUSCULAR HGB CONC 32.8 g/dl (32.0-37.0); MEAN CORPUSCULAR VOLUME 92.4 fl (82.0-101.0); MEAN PLATELET VOLUME 10.1 fl (7.4-10.4); MONOCYTE # 1.2 10^3/ul (0.3-0.9); MONOCYTES % 9.1 % (0.0-11.0); NEUTROPHIL # 10.4 10^3/ul (1.6-7.5); PLATELET COUNT 141 10^3/UL (140-415); RED BLOOD COUNT 3.17 10^6/ul (4.70-6.10); RED CELL DISTRIBUTION WIDTH 14.1 % (11.5-14.5)
[2018-07-20 05:09] LABS: WHITE BLOOD COUNT 13.1 10^3/ul (4.8-10.8)
[2018-07-20] MEDS: PIPER-TAZO 2.25 GM (PMX) 50 ML IVPB ×2 (05:30→13:32)
[2018-07-20] MEDS: FUROSEMIDE 40 MG INJ IV ×2 (05:30→18:00)
[2018-07-20 05:56] LABS: ALBUMIN/GLOBULIN RATIO 0.96; ANION GAP 12 (5-13); Estimated GFR 7 mL/min (>60)
[2018-07-20 05:57] LABS: BILIRUBIN,TOTAL 0.4 mg/dl (0.2-1.3)
[2018-07-20 06:00] LABS: MAGNESIUM 2.7 mg/dl (1.7-2.5)
[2018-07-20 06:02] LABS: ALANINE AMINOTRANSFERASE 70 IU/L (13-69); ALBUMIN 2.9 g/dl (3.3-4.9); ALKALINE PHOSPHATASE 259 IU/L (42-121); ASPARTATE AMINO TRANSFERASE 71 IU/L (15-46); BILIRUBIN,INDIRECT 0.4 mg/dl (0-1.1); BLOOD UREA NITROGEN 97 mg/dl (7-20); CALCIUM 8.6 mg/dl (8.4-10.2); CARBON DIOXIDE 29 mmol/L (21-31); CHLORIDE 103 mmol/L (97-110); CREATININE 7.75 mg/dl (0.61-1.24); GLUCOSE 96 mg/dl (70-220); POTASSIUM 3.7 mmol/L (3.5-5.1); SODIUM 144 mmol/L (135-144); TOTAL PROTEIN 5.9 g/dl (6.1-8.1)
[2018-07-20 06:21] LABS: AADO2 Arterial 616.6 mmHg (7.0-24.0); Allen Test ACCEPTAB; Arterial Base Excess -1.8 mmol/L (-3.0-3); Arterial Blood Gas Oxygen Sat 79.2 mmHG (95.0-98.0); Arterial COHb 0 % (0.0-3.0); Arterial HCO3 24.5 mmol/L (22.0-26.0); Arterial MetHb 0.2 % (0.0-1.5); Arterial pCO2 47.7 mmhg (35-45); Blood Gas Mean Airway Pressure 14; MODE VENT - AC; Site Right Radial
[2018-07-20] MEDS: FAMOTIDINE 20 MG TAB NGT (08:32)
[2018-07-20] MEDS: ASPIRIN 81 MG TAB PO (08:32)
[2018-07-20] MEDS: HEPARIN 5,000 UNIT/1 ML VIAL SC (08:35)
[2018-07-20] MEDS: TICAGRELOR 90 MG TABLET PO (08:36)
[2018-07-20] MEDS: LEVETIRACETAM 500 MG (PMX) 100 ML IVPB (08:37)
[2018-07-20 11:48] LABS: AADO2 Arterial 555.4 mmHg (7.0-24.0); Allen Test ACCEPTAB; Arterial Base Excess -0.2 mmol/L (-3.0-3); Arterial Blood Gas Oxygen Sat 97.4 mmHG (95.0-98.0); Arterial COHb 0.2 % (0.0-3.0); Arterial Fraction of Oxyhgb 96.9 % (93.0-99.0); Arterial HCO3 25.2 mmol/L (22.0-26.0); Arterial MetHb 0.3 % (0.0-1.5); Arterial pCO2 44.1 mmhg (35-45); MODE VENT - AC; Site Right Radial
[2018-07-20] MEDS ORDERED: ONDANSETRON 4 MG INJ IV (18:30)
[2018-07-20] MEDS ORDERED: DIMETHICONE STICK TOP (18:30)
[2018-07-20] MEDS ORDERED: ACETAMINOPHEN 325 MG TAB NGT (18:30)
[2018-07-20] MEDS ORDERED: DIPHENHYDRAMINE 50 MG INJ IV (18:30)
[2018-07-20] MEDS ORDERED: ARTIFICIAL TEARS 15 ML OPH BOTH EYES (18:30)
[2018-07-20] MEDS: morphine 2 MG INJ IV (20:01)
[2018-07-20] MEDS: LORAZEPAM 2 MG INJ IV (20:04)
[2018-07-22 10:27] LABS: HAPTOGLOBIN 206 mg/dL (43-212)
== END 2018-07-20 20:33 | disposition expired | DRG 270 ==
LOC: ICU 20:58 → E/R 19:45
PROC: 02703DZ Dilation of Coronary Artery, One Artery with Intraluminal Device, Percutaneous Approach (ICD-10-PCS; principal; 2018-07-14 21:00)
PROC: 5A02210 Assistance with Cardiac Output using Balloon Pump, Continuous (ICD-10-PCS; 2018-07-14 21:00)
PROC: 02C03ZZ Extirpation of Matter from Coronary Artery, One Artery, Percutaneous Approach (ICD-10-PCS; 2018-07-14 21:00)
PROC: 4A023N7 Measurement of Cardiac Sampling and Pressure, Left Heart, Percutaneous Approach (ICD-10-PCS; 2018-07-14 21:00)
PROC: B211YZZ Fluoroscopy of Multiple Coronary Arteries using Other Contrast (ICD-10-PCS; 2018-07-14 21:00)
PROC: 5A1955Z Respiratory Ventilation, Greater than 96 Consecutive Hours (ICD-10-PCS; 2018-07-14 21:37)
PROC: 0BH18EZ Insertion of Endotracheal Airway into Trachea, Via Natural or Artificial Opening Endoscopic (ICD-10-PCS; 2018-07-14 21:37)
PROC: 06HY33Z Insertion of Infusion Device into Lower Vein, Percutaneous Approach (ICD-10-PCS; 2018-07-14 21:37)
PROC: 06HY33Z Insertion of Infusion Device into Lower Vein, Percutaneous Approach (ICD-10-PCS; 2018-07-14 21:37)
DX: I21.19 ST elevation (STEMI) myocardial infarction involving other coronary artery of inferior wall (principal); J96.02 Acute respiratory failure with hypercapnia; J96.01 Acute respiratory failure with hypoxia; K72.00 Acute and subacute hepatic failure without coma; N17.0 Acute kidney failure with tubular necrosis; J69.0 Pneumonitis due to inhalation of food and vomit; E87.2 Acidosis; G93.1 Anoxic brain damage, not elsewhere classified; G40.89 Other seizures; I49.01 Ventricular fibrillation; I25.10 Atherosclerotic heart disease of native coronary artery without angina pectoris; E78.1 Pure hyperglyceridemia; I46.2 Cardiac arrest due to underlying cardiac condition; E87.6 Hypokalemia; I10 Essential (primary) hypertension; E87.70 Fluid overload, unspecified; R73.9 Hyperglycemia, unspecified
CPT/HCPCS: 31500; 36415; 36600; 70450; 71045; 74018; 76775; 80048; 80053; 80061; 80076; 80307; 81001; 81003; 82043; 82140; 82150; 82550; 82553; 82728; 82803; 82962; 83010; 83036; 83540; 83605; 83615; 83690; 83735; 83880; 84100; 84155; 84300; 84443; 84484; 85014; 85018; 85025; 85045; 85384; 85610; 85730; 86850; 86900; 86901; 87040; 87070; 87086; 89220; 90686; 92941; 92950; 93005; 93306; 93458; 94002; 94003; 94770; 95819; 96374; 96375; 99291-25